=== PATIENT | male | born 1985 | race Caucasian/White ===

== ENCOUNTER → 2022-02-01 | Outpatient (REF) | payer MEDICAID, OTHER ==
[2022-02-01 16:04] LABS: BASO % 0.5 % (0.0-1.0); EOS # 0.1 10^3/uL (0.0-0.5); HEMATOCRIT 47.3 % (42.0-52.0); HEMOGLOBIN 15.8 g/dl (13.5-17.5); LYMPH # 2.2 10^3/uL (1.5-5.0); LYMPH % 36.9 % (24.0-44.0); MEAN CORPUSCULAR HEMOGLOBIN 29.5 pg (27.0-33.0); MEAN CORPUSCULAR HGB CONC 33.4 g/dl (32.0-36.5); MEAN CORPUSCULAR VOLUME 88.2 fl (80.0-96.0); MONO # 0.7 10^3/uL (0.0-0.8); MONO % 11.6 % (2.0-8.0); NEUTROPHILS # 2.9 10^3/uL (1.5-8.5); NEUTROPHILS % 48.8 % (36.0-66.0); PLATELET COUNT, AUTOMATED 278 10^3/uL (150-450); RED BLOOD COUNT 5.36 10^6/uL (4.30-6.10)
[2022-02-01 16:33] LABS: ALBUMIN 3.9 GM/DL (3.2-5.2); ALT/SGPT 53 U/L (12-78); BILIRUBIN,TOTAL 0.7 MG/DL (0.2-1.0); BLOOD UREA NITROGEN 14 MG/DL (7-18); CALCIUM LEVEL 8.1 MG/DL (8.5-10.1); CARBON DIOXIDE LEVEL 30 MEQ/L (21-32); CHLORIDE LEVEL 106 MEQ/L (98-107); CHOLESTEROL LEVEL 151 MG/DL (<200); CHOLESTEROL RISK RATIO 2.359 (<5); CREATININE FOR GFR 1.16 MG/DL (0.70-1.30); GLOMERULAR FILTRATION RATE > 60.0 (>60); GLUCOSE, FASTING 86 MG/DL (70-100); HDL CHOLESTEROL 64 MG/DL (>40); LDL CHOLESTEROL 67 MG/DL (<100); NON-HDL-C 87 MG/DL; POTASSIUM SERUM 4.4 MEQ/L (3.5-5.1); SODIUM LEVEL 139 MEQ/L (136-145); TOTAL PROTEIN 7.1 GM/DL (6.4-8.2); TRIGLYCERIDES LEVEL 98 MG/DL (<150)
[2022-02-01 16:34] LABS: FOLATE 8.7 NG/ML; TOTAL 25(OH) VITAMIN D 23.6 NG/ML (30.0-100.0); VITAMIN B12 LEVEL 753 PG/ML
== END ==
LOC: M SFHCCAPE 07:58
PROVIDERS: ATTEND Physician Assistant
DX: Z00.00 Encounter for general adult medical examination without abnormal findings (principal)

== ENCOUNTER → 2022-09-12 | Outpatient (REF) | payer OTHER | LOC: M SFHCCAPE 10:39 | PROVIDERS: ATTEND Physician Assistant | DX: Z53.9 Procedure and treatment not carried out, unspecified reason (principal) ==

== ENCOUNTER → 2022-09-13 | Outpatient (REF) | payer OTHER ==
[2022-09-13 18:21] LABS: ALBUMIN 4.1 G/DL (3.2-5.2); ALKALINE PHOSPHATASE 75 U/L (46-116); ALT/SGPT 51 U/L (7.0-40); AST/SGOT 34 U/L (<34); BILIRUBIN,TOTAL 0.8 MG/DL (0.3-1.2); BLOOD UREA NITROGEN 17 MG/DL (9-23); CALCIUM LEVEL 8.9 MG/DL (8.5-10.1); CARBON DIOXIDE LEVEL 31 MMOL/L (20-31); CHLORIDE LEVEL 103 MMOL/L (98-107); CHOLESTEROL LEVEL 171 MG/DL (<200); CHOLESTEROL RISK RATIO 2.85 (<5); CREATININE FOR GFR 1.11 MG/DL (0.70-1.30); GLOMERULAR FILTRATION RATE > 60.0 (>60); GLUCOSE, FASTING 89 MG/DL (60-100); HDL CHOLESTEROL 59.8 MG/DL (>40); NON-HDL-C 111 MG/DL; POTASSIUM SERUM 4.5 MMOL/L (3.5-5.1); SODIUM LEVEL 141 MMOL/L (136-145); TOTAL PROTEIN 7.1 G/DL (5.7-8.2); TRIGLYCERIDES LEVEL 91 MG/DL (<150)
[2022-09-13 18:22] LABS: TOTAL 25(OH) VITAMIN D 59.3 NG/ML (20.0-100.0)
== END ==
LOC: M SFHCCAPE 08:48
PROVIDERS: ATTEND Physician Assistant
DX: E55.9 Vitamin D deficiency, unspecified (principal)

== ENCOUNTER → 2023-09-18 | Outpatient (REF) | payer OTHER ==
[2023-09-18 19:16] LABS: BASO % 0.6 % (0.0-1.0); EOS # 0.2 10^3/uL (0.0-0.5); HEMATOCRIT 46.2 % (42.0-52.0); HEMOGLOBIN 15.6 g/dl (13.5-17.5); LYMPH # 2.1 10^3/uL (1.5-5.0); LYMPH % 40.5 % (24.0-44.0); MEAN CORPUSCULAR HEMOGLOBIN 29.9 pg (27.0-33.0); MEAN CORPUSCULAR HGB CONC 33.8 g/dl (32.0-36.5); MEAN CORPUSCULAR VOLUME 88.5 fl (80.0-96.0); MONO # 0.5 10^3/uL (0.0-0.8); MONO % 10.7 % (2.0-8.0); NEUTROPHILS # 2.3 10^3/uL (1.5-8.5); NEUTROPHILS % 44.8 % (36.0-66.0); PLATELET COUNT, AUTOMATED 264 10^3/uL (150-450); RED BLOOD COUNT 5.22 10^6/uL (4.30-6.10); WHITE BLOOD COUNT 5.1 10^3/uL (4.0-10.0)
[2023-09-18 19:47] LABS: ALKALINE PHOSPHATASE 66 U/L (46-116); ALT/SGPT 51 U/L (7.0-40); AST/SGOT 41 U/L (<34); BLOOD UREA NITROGEN 16 MG/DL (9-23); CARBON DIOXIDE LEVEL 31 MMOL/L (20-31); CHLORIDE LEVEL 103 MMOL/L (98-107); CHOLESTEROL LEVEL 197 MG/DL (<200); CHOLESTEROL RISK RATIO 2.65 (<5); GLOMERULAR FILTRATION RATE > 60.0 (>60); GLUCOSE, FASTING 92 MG/DL (60-100); HDL CHOLESTEROL 74.2 MG/DL (>40); LDL CHOLESTEROL 106.4 MG/DL (<100); NON-HDL-C 122.8 MG/DL; POTASSIUM SERUM 4.1 MMOL/L (3.5-5.1); SODIUM LEVEL 134 MMOL/L (136-145); TOTAL 25(OH) VITAMIN D 57.8 NG/ML (20.0-100.0); TOTAL PROTEIN 7.3 G/DL (5.7-8.2); TRIGLYCERIDES LEVEL 82 MG/DL (<150)
== END ==
LOC: M SFHCCAPE 08:37
PROVIDERS: ATTEND Physician Assistant Medical
DX: R03.0 Elevated blood-pressure reading, without diagnosis of hypertension (principal); E55.9 Vitamin D deficiency, unspecified; Z13.220 Encounter for screening for lipoid disorders

== ENCOUNTER 2024-06-14 12:56 | Emergency (ER) | payer OTHER ==
[~2024-06-14] VITALS: Ht 175.3 cm; Wt 105.5 kg
[2024-06-14] MEDS ORDERED: AMPH1TAB2 (13:13)
[2024-06-14] MEDS ORDERED: MINO100C4 (13:13)
[2024-06-14 13:15] VITALS: TEMP 97.7
[2024-06-14] MEDS: KETOROLAC 30 MG/ML 1ML VIAL IM ONE (14:42)
[2024-06-14] MEDS: diazePAM 5MG TABLET PO ONE (15:22)
[2024-06-14] MEDS ORDERED: METH-1164 PO (15:58)
[2024-06-14 16:22] VITALS: BP 150/73; O2SAT 99
== END 2024-06-14 16:23 | disposition home or self-care (01) ==
LOC: EDBD 12:56 → M ED 12:56
DX: S80.912A Unspecified superficial injury of left knee, initial encounter (principal); Y92.9 Unspecified place or not applicable; Y93.9 Activity, unspecified; Y99.9 Unspecified external cause status; W01.0XXA Fall on same level from slipping, tripping and stumbling without subsequent striking against object, initial encounter; F90.9 Attention-deficit hyperactivity disorder, unspecified type; Z79.899 Other long term (current) drug therapy
CPT/HCPCS: 73564; 96372; 99284; J1885

== ENCOUNTER → 2024-06-20 | Outpatient (CLI) | payer OTHER ==
[~2024-06-20] MED LIST: AMPH1TAB2; METH-1164 PO; MINO100C4
[2024-06-20 15:38] LABS: BASO % 0.3 % (0.0-1.0); EOS # 0.1 10^3/uL (0.0-0.5); EOS % 1.7 % (0.0-3.0); HEMOGLOBIN 16.3 g/dl (13.5-17.5); LYMPH # 1.8 10^3/uL (1.5-5.0); MEAN CORPUSCULAR HEMOGLOBIN 30.2 pg (27.0-33.0); MEAN CORPUSCULAR HGB CONC 34.7 g/dl (32.0-36.5); MEAN CORPUSCULAR VOLUME 87.2 fl (80.0-96.0); MONO # 0.6 10^3/uL (0.0-0.8); MONO % 9.2 % (2.0-8.0); NEUTROPHILS # 4.4 10^3/uL (1.5-8.5); NEUTROPHILS % 62.2 % (36.0-66.0); PLATELET COUNT, AUTOMATED 265 10^3/uL (150-450); RED BLOOD COUNT 5.39 10^6/uL (4.30-6.10)
[2024-06-20 16:06] LABS: ALBUMIN 3.8 G/DL (3.2-5.2); ALKALINE PHOSPHATASE 88 U/L (40-129); ALT/SGPT 48 U/L (7.0-40); AST/SGOT 35 U/L (<34); BILIRUBIN,TOTAL 0.6 MG/DL (0.3-1.2); BLOOD UREA NITROGEN 13 MG/DL (9-23); CALCIUM LEVEL 9.6 MG/DL (8.5-10.1); CARBON DIOXIDE LEVEL 32 MMOL/L (20-31); CHLORIDE LEVEL 106 MMOL/L (98-107); CREATININE FOR GFR 1.01 MG/DL (0.70-1.30); GLOMERULAR FILTRATION RATE > 60.0 (>60); GLUCOSE, FASTING 90 MG/DL (60-100); POTASSIUM SERUM 3.9 MMOL/L (3.5-5.1); SODIUM LEVEL 141 MMOL/L (136-145); TOTAL PROTEIN 7.2 G/DL (5.7-8.2)
[2024-06-20 16:39] LABS: INR 0.96
== END ==
LOC: M RAD 15:09
PROVIDERS: ATTEND Orthopaedic Surgery
DX: S76.112A Strain of left quadriceps muscle, fascia and tendon, initial encounter (principal); M71.22 Synovial cyst of popliteal space [Baker], left knee; X58.XXXA Exposure to other specified factors, initial encounter; Y92.9 Unspecified place or not applicable; Y93.9 Activity, unspecified; Y99.9 Unspecified external cause status

== ENCOUNTER → 2024-06-30 | Outpatient (CLI) | payer OTHER | LOC: M RAD 15:13 | PROVIDERS: ATTEND Orthopaedic Surgery | DX: S86.812A Strain of other muscle(s) and tendon(s) at lower leg level, left leg, initial encounter (principal); X58.XXXA Exposure to other specified factors, initial encounter; Y92.9 Unspecified place or not applicable ==

== ENCOUNTER 2024-07-05 12:56 | Observation (INO) | payer OTHER ==
[~2024-07-05] VITALS: Ht 177.8 cm; Wt 106.0 kg
[~2024-07-05 12:56] MED LIST changes: -AMPH1TAB2; +AMPH1TAB2 PO; -MINO100C4; +MINO100C4 PO
[2024-07-05 20:47] VITALS: BP 152/99; TEMP 97.5; O2SAT 95
[2024-07-05] MEDS ORDERED: ERGO500029 PO (22:48)
[2024-07-05] MEDS ORDERED: FINA1TAB4 PO (22:48)
[2024-07-05] MEDS ORDERED: CYCL-707 PO (22:48)
[2024-07-05] MEDS ORDERED: ACE65ERTAB PO (22:48)
[2024-07-05] MEDS ORDERED: TRAM50TA2 PO (22:48)
[2024-07-05] MEDS ORDERED: HOME MED LIST COMPLETE! XX SCH (22:50)
[2024-07-06 06:24] VITALS: BP 122/60; TEMP 97.5; O2SAT 97
[2024-07-06] MEDS ORDERED: propofoL 200 MG/20 ML VIAL As Ordered ONE (08:01)
[2024-07-06] MEDS ORDERED: MIDAZOLAM INJ 2MG/2ML VIAL As Ordered ONE (08:01)
[2024-07-06] MEDS ORDERED: LIDOCAINE 2% 100MG/5ML SDV (FOR ANES.) As Ordered ONE (08:01)
[2024-07-06] MEDS ORDERED: KETOROLAC 60MG 2ML VIAL As Ordered ONE (08:01)
[2024-07-06] MEDS ORDERED: ACETAMINOPHEN 1000MG 100ML IV BAG As Ordered ONE (08:02)
[2024-07-06] MEDS ORDERED: fentaNYL 100 MCG/2 ML INJECTION As Ordered ONE (08:02)
[2024-07-06] MEDS: ceFAZolin 1GM VIAL As Ordered ONE (08:25)
[2024-07-06] MEDS ORDERED: ROCURONIUM BROMIDE 50MG/5ML VIAL As Ordered ONE (08:33)
[2024-07-06] MEDS ORDERED: HYDROmorphone HCL 2MG/ML 1ML VIAL As Ordered ONE (08:38)
[2024-07-06] MEDS ORDERED: METOPROLOL 5 MG/5 ML VIAL As Ordered ONE (09:47)
[2024-07-06] MEDS ORDERED: SUGAMMADEX SODIUM 500 MG/5 ML VIAL (BRIDION) As Ordered ONE (09:58)
[2024-07-06] MEDS: HYDROMORPHONE HCL 0.5 MG/ 0.5 ML SYRINGE IV PRN (10:35)
[2024-07-06] MEDS: ONDANSETRON 4MG 2ML VIAL IV PRN (10:40)
[2024-07-06] MEDS: oxyCODONE 5MG TAB PO PRN (10:41)
[2024-07-06] MEDS: fentaNYL 100 MCG/2 ML INJECTION IV PRN (10:47)
[2024-07-06] MEDS: METOCLOPRAMIDE INJ 10MG/2ML VIAL IV STA (10:58)
[2024-07-06] MEDS ORDERED: METHOCARBAMOL 1,000 MG/10 ML VIAL As Ordered ONE (11:11)
[2024-07-06] MEDS: METHOCARBAMOL 1,000 MG/10 ML VIAL IV ONE (11:14)
[2024-07-06] MEDS ORDERED: OXYC1TAB23 PO (12:02)
[2024-07-06 12:15] VITALS: BP 135/101; TEMP 94; O2SAT 93
[2024-07-06 12:45] VITALS: BP 137/100; TEMP 97.5; O2SAT 100
[2024-07-06] MEDS ORDERED: METHOCARBAMOL 1,000 MG/10 ML VIAL IM ONE (13:00)
[2024-07-06 13:15] VITALS: BP 143/100; TEMP 97.3; O2SAT 96
[2024-07-06 14:15] VITALS: BP 128/91; TEMP 95; O2SAT 95
[2024-07-06] MEDS: ONDANSETRON 4MG 2ML VIAL IV ONE (15:14)
== END 2024-07-06 15:50 | disposition home or self-care (01) ==
LOC: M MS5PR 19:55
PROVIDERS: ADMIT Orthopaedic Surgery Hand Surgery; ATTEND Orthopaedic Surgery Hand Surgery
DX: S86.112A Strain of other muscle(s) and tendon(s) of posterior muscle group at lower leg level, left leg, initial encounter (principal); W01.0XXA Fall on same level from slipping, tripping and stumbling without subsequent striking against object, initial encounter; Y92.838 Other recreation area as the place of occurrence of the external cause; Y93.9 Activity, unspecified; Y99.9 Unspecified external cause status; F90.9 Attention-deficit hyperactivity disorder, unspecified type; Z79.899 Other long term (current) drug therapy
CPT/HCPCS: 27664; 96374; C1713; J0131; J0665; J0690; J1100; J1171; J1885; J2250; J2405; J2765; J2800; J3010

== ENCOUNTER → 2025-01-12 | Outpatient (REF) | payer OTHER ==
[~2025-01-12] MED LIST changes: +ACE65ERTAB PO; +CYCL-707 PO; +ERGO500029 PO; +FINA1TAB4 PO; +OXYC1TAB23 PO; +TRAM50TA2 PO
== END ==
LOC: M SFHCCAPE 08:34
PROVIDERS: ATTEND Physician Assistant Medical
DX: F90.9 Attention-deficit hyperactivity disorder, unspecified type (principal)

== ENCOUNTER → 2025-03-02 | Outpatient (CLI) | payer OTHER | LOC: M RAD 07:52 | PROVIDERS: ATTEND Orthopaedic Surgery | DX: S76.192A Other specified injury of left quadriceps muscle, fascia and tendon, initial encounter (principal); M25.462 Effusion, left knee ==

== ENCOUNTER 2025-05-25 09:51 | Day surgery (SDC) | payer OTHER ==
[~2025-05-25] VITALS: Ht 175.3 cm; Wt 102.7 kg
[~2025-05-25 09:51] MED LIST changes: -ACE65ERTAB PO; +ACET-1593 PO
[2025-05-25] MEDS ORDERED: dexmedeTOMIDine (4 MCG/ML) 200 MCG/50 ML BTL As Ordered ONE (10:28)
[2025-05-25] MEDS ORDERED: KETOROLAC 30 MG/ML 1 ML VIAL As Ordered ONE (10:28)
[2025-05-25] MEDS ORDERED: LIDOCAINE 2% 100 MG/5 ML SDV (FOR ANES.) As Ordered ONE (10:28)
[2025-05-25] MEDS ORDERED: ACETAMINOPHEN 1000MG/100ML IV BAG As Ordered ONE (10:28)
[2025-05-25] MEDS ORDERED: ONDANSETRON 4MG 2ML VIAL As Ordered ONE (10:28)
[2025-05-25] MEDS ORDERED: dexAMETHasone 4 MG/ML 1 ML VIAL As Ordered ONE (10:28)
[2025-05-25] MEDS ORDERED: LR 1,000 ML IV SCH (10:30)
[2025-05-25] MEDS ORDERED: MIDAZOLAM INJ 2 MG/2 ML VIAL As Ordered ONE (10:34)
[2025-05-25] MEDS: LIDOCAINE W/EPINEPHrine 1% 20 ML VIAL XX ONE (11:15)
[2025-05-25] MEDS: SODIUM BICARBONATE 8.4% INJ 50MEQ/50ML VIAL XX ONE (11:15)
[2025-05-25 13:27] VITALS: BP 156/92; TEMP 97.8; O2SAT 99
== END 2025-05-25 13:53 | disposition home or self-care (01) ==
LOC: M SDC 09:51
PROVIDERS: ATTEND Orthopaedic Surgery Hand Surgery
DX: T85.698A Other mechanical complication of other specified internal prosthetic devices, implants and grafts, initial encounter (principal); L72.0 Epidermal cyst; Y79.2 Prosthetic and other implants, materials and accessory orthopedic devices associated with adverse incidents; Z18.2 Retained plastic fragments; M25.562 Pain in left knee
CPT/HCPCS: 11042; 87070; 87075; 87077; 87205; 88305; J0131; J0688; J1100; J1885; J2250; J2405; J3010